=== PATIENT | male | born 1945 | race Caucasian/White ===

== ENCOUNTER 2018-12-12 09:17 | Inpatient (IN) ==
--- NOTE | 2018-12-06 14:59 | Anesthesiology Consultation ---
Date of Service December 06, 2018 Assessment & Plan (1) Encounter for pre-operative examination: Chart Review Chart Review: Acceptable Risk for Surgery and Patient seen in Pre Admission Testing Teaching & Discussion Instructed NPO after midnight before surgery, except medications with 15 cc of water. Medication instructions provided according to the PAT guidelines. History Surgery Operation Date: 12/12/18 12:45 Proposed Procedures p Right Total Hip Replacement - Enrico Miller MD Height/Weight Height: 5 ft 7.5 in Weight: 73.3 kg Allergies Allergy/AdvReac Type Severity Reaction Status Date / Time No Known Allergies Allergy Verified 12/06/18 14:35 Medications Home Medications Medication Instructions Recorded Confirmed Last Taken Ointment 1 dose EXT UD PRN 12/06/18 12/06/18 Unknown acetaminophen [Tylenol Extra 1 - 2 tab PO Q6H PRN 12/06/18 12/06/18 Unknown Strength] naproxen sodium [Aleve] 220 mg PO Q8H PRN 12/06/18 12/06/18 Unknown Past Medical History Medical History Ankle fracture 35 YEARS AGO, S/P multiple surgeries, some chronic pain now. GERD (gastroesophageal reflux disease) HX OF Osteoarthritis Psoriasis Uses Rx topical ointment for this Urinary frequency DURING NIGHT Exercise / Class Metabolic Activity III < 4 Walking/Shop/Light housework (Very limited by ankle and hip pain, but denies any CP or SOB) Past Surgical History Surgical History History of open reduction and internal fixation (ORIF) procedure RT ANKLE X 3 (FUSED NOW) History of tooth extraction Past Anesthesia History No Hx of Anesthesia Complications and No Family Hx of Anesthesia Complications History of PONV No Hx of PONV and No Hx of Motion Sickness Social History Smoking Status: Never smoker Do You Dip or Chew Tobacco: No Hx Alcohol Use: No Hx Substance Use: No substance use type: does not use Review of Systems Pt denies any recent chest pain, shortness of breath, palpitations, cough, fever or URI. Physical Exam Vital Signs BP: 112/68 P: 83bpm SPO2: 96% RA T: 98.7 F R: 16 ENMT Mouth: no dental restorations, no chipped teeth and no loose teeth Thyromental Distance: > or= 3.5 Finger Breadths (3.5) Mallampati Class: II Neck normal visual inspection and + limited neck extension (mildly) Respiratory normal respiratory effort Auscultation: lungs clear to auscultation bilaterally Cardiovascular Rate/Rhythm: regular rate and regular rhythm Heart Sounds: no murmur Vessels: no carotid bruit Extremities: no edema Testing Electrocardiogram Date: 12/06/18 Findings: + NSR @ (75) Chest X-Ray Date: 12/06/18 Findings: + NAD Laboratory Results 12/06/18 15:24 12/06/18 15:24 Blood Type B Negative 12/06/18 15:24 Antibody Screen NEGATIVE 12/06/18 15:24 PT 10.5 Seconds (9.0-12.0) 12/06/18 15:24 INR 1.0 (0.9-1.1) 12/06/18 15:24 APTT 28.0 Seconds (21.0-31.0) 12/06/18 15:24
--- NOTE | 2018-12-06 15:01 | PAT Medication Instructions ---
Medication Instructions Date of Service December 06, 2018 Home Medications Ointment 1 dose EXT UD PRN acetaminophen [Tylenol Extra Strength] 1 - 2 tab PO Q6H PRN naproxen sodium [Aleve] 220 mg PO Q8H PRN ASK your surgeon for instructions naproxen sodium [Aleve] 220 mg PO Q8H PRN STOP taking 24 hours before surgery Ointment 1 dose EXT UD PRN Take morning of surgery With a small sip of water, OTHERWISE NOTHING TO EAT OR DRINK AFTER MIDNIGHT: acetaminophen [Tylenol Extra Strength] 1 - 2 tab PO Q6H PRN (if needed, may be taken up to four hours before surgery) Other Notes If you have any questions please call us at [phone] or [phone] or [phone] or [phone]
[2018-12-06 15:59] LABS: Basophils # (auto) 0.03 K/uL (0-0.2); Basophils % (auto) 0.3 %; Eosinophils # (auto) 0.33 K/uL (0-0.5); Eosinophils % (auto) 3.5 %; Hematocrit (blood only) 39.6 % (42-52); Hemoglobin 13.4 g/dL (14.0-18.0); Immature Granulocytes # (auto) 0.03 K/uL (0.00-0.02); Immature Granulocytes % (auto) 0.3 %; Lymphocytes # (auto) 3.28 K/uL (1.2-3.4); Lymphocytes % (auto) 35.2 %; Mean Corpuscular Hgb Conc 33.8 g/dL (32-36); Mean Corpuscular Volume 86.7 fL (80-100); Mean Platelet Volume 9.8 fL (7.4-10.4); Monocytes % (auto) 10.7 %; Neutrophils # (auto) 4.65 K/uL (1.4-6.5); Platelet Count 374 K/uL (130-400); RDW Coefficient of Variation 16.3 % (11.5-14.5); RDW Standard Deviation 51.9 fL (36.4-46.3); Red Blood Count 4.57 M/uL (4.7-6.1); White Blood Count 9.32 K/uL (4.8-10.8)
[2018-12-06 16:08] LABS: BUN Creatinine Ratio 17.7 (10-20); C Reactive Protein 0.87 mg/dl (0-0.29); Calcium 9.4 mg/dl (8.5-10.1); Creatinine Clr Calc Pharmacy 81.4 ml/min; Est GFR (African American) 104.5; Est GFR (Non-African American) 90.2; Potassium 4.2 mmol/L (3.5-5.1)
[2018-12-06 16:13] LABS: Prothrombin Time 10.5 Seconds (9.0-12.0)
--- NOTE | 2018-12-06 16:28 | XRay Report ---
XR chest Pre-admission PA/Lat CLINICAL HISTORY: Preoperative evaluation. COMPARISON STUDY: No previous studies for comparison. FINDINGS: Lung volumes are normal. There is no consolidation or evidence for pulmonary edema. Cardiac size is normal. Mediastinal contours are normal. IMPRESSION: No acute cardiopulmonary findings. Electronically signed by: Juni Collier M.D. 12/06/2018 4:26 PM
--- NOTE | 2018-12-08 12:56 | History and Physical Report ---
DATE OF ADMISSION: 12/12/2018 CHIEF COMPLAINT: Bilateral hip pain and discomfort, right side greater than left. HISTORY OF PRESENT ILLNESS: The patient is a 73-year-old gentleman referred by my partner, Dr. Xiong for surgical treatment of his hips. He has got a fairly long history of bilateral hip pain and discomfort that has gotten worse recently. He underwent a right ankle arthrodesis done by Dr. Stockton about 6 months ago. He has been doing okay, but doing therapy as a result of this. He started developing increasing pain and discomfort in both of his hips. He has actually already used a cane to get around. The right side is worse than the left. Therapy has actually been aggravating it. He describes groin pain and thigh pain. He has difficulty putting his shoes and socks on. His walking tolerance is limited. PAST MEDICAL HISTORY: Noncontributory. PAST SURGICAL HISTORY: Right ankle arthrodesis 6 months ago done at [place]. ALLERGIES: None. CURRENT MEDICINES: None. SOCIAL HISTORY: Significant for a 73-year-old male. He is single. He lives in [place]. Does not smoke. FAMILY HISTORY: Noncontributory. REVIEW OF HISTORY: Negative for diabetes, neurological problems, vascular problems, bleeding disorders. No chest pain or shortness of breath. No history of DVT or PE. PHYSICAL EXAMINATION: GENERAL: Shows a relatively pleasant elderly male. Looks to be in slightly uncomfortable. HEENT: Benign. NECK: Supple, no lymphadenopathy. LUNGS: Clear to auscultation. HEART: Has regular rate and rhythm. ABDOMEN: Soft, nontender, nondistended. EXTREMITIES: Grossly neurovascularly intact except as follows: Examination of both hips reveals the patient walks with use of a cane. He walks with both feet externally rotated. Leg lengths clinically appear pretty equal. He has difficulty abducting in either leg. He has marked stiffness and pain with hip motion on both sides. Hip range of motion on the right is -10 to 30 and the left is -20 to about 40. He has got no knee effusions. He is neurologically intact otherwise. X-RAYS: X-rays of both hips reveal advanced concentric hip DJD. The left side is actually a bit worse than right. Looks inflammatory in nature. There are cystic changes in the femoral head and acetabulum. LABORATORY RESULTS: Reveal an elevated sed rate of 52 and C-reactive protein of 0.87. ASSESSMENT: A 73-year-old male with a history of hip pain and discomfort, unresponsive to conservative treatment consistent with some type of inflammatory arthritis. His hips are markedly stiff. He would really like to get these fixed. PLAN: We are going to proceed with right total hip replacement as that is the worse clinically. It is not as bad radiographically. The risks and benefits of total hip replacement were explained to the patient including but not limited to DVT, PE, , infection, neurological injury, vascular injury, bleeding problem, pain, limited range of motion, stiffness, failure to relieve symptoms, incomplete relief of symptoms, need for further surgery in future, fracture, leg length inequality, nerve palsy, dislocation, etc. The patient understands and desires to proceed. Informed consent obtained. I do not see any clinical signs of infection. I think his sed rate and C-reactive protein have just elevated due to inflammatory nature of this process. CHARITY
[~2018-12-12 09:17] MED LIST: BUPIVACAINE 0.5 % 5 MG/1 ML PF 10ML VIAL ONE; CEFAZOLIN 2000MG 2,000 MG/15 ML SYR IV SCH; FAMOTIDINE 20 MG TAB PO SCH; GABAPENTIN 300 MG PO SCH; LR 500ML BOLUS, THEN 15ML/HR IV SCH; LR 60ML/HR IV SCH; METOCLOPRAMIDE HCL 10 MG TABLET PO SCH; TRANEXAMIC ACID 1,000 MG **IV Pre-op IV SCH
[2018-12-12] MEDS ORDERED: ACETAMINOPHEN 500 MG TAB ONE (10:41)
[2018-12-12] MEDS ORDERED: fentaNYL citrate 100 MCG/2 ML VIAL ONE (10:51)
[2018-12-12] MEDS ORDERED: MIDAZOLAM HCL 1 MG/ML 2ML VIAL ONE (10:51)
[2018-12-12] MEDS ORDERED: BACITRACIN INJ 50,000 UNIT VIAL ONE (12:03)
[2018-12-12] MEDS ORDERED: BUPIVACAINE/EPINEPHRINE 0.5% MPF 1:200,000 30 ML VIAL ONE (12:03)
[2018-12-12] MEDS ORDERED: MoRPHine SULFATE PF 1 MG/ML 10 ML AMP/VIAL ONE (12:21)
--- NOTE | 2018-12-12 12:57 | History & Physical Bridge Note ---
Date of Service December 12, 2018 History & Physical Bridge Note I have examined the patient, reviewed the History & Physical and in the interval since the performance of the History & Physical I have noted the following changes of clinical significance: no changes noted
[2018-12-12] MEDS ORDERED: PHENYLEPHRINE HCL 10 MG/ML VIAL ONE (13:26)
[2018-12-12] MEDS ORDERED: ePHEDrine sulfate 50 MG/ML SYR ONE (13:27)
[2018-12-12] MEDS ORDERED: ePHEDrine sulfate 50 MG/ML AMP IV PRN (14:30)
[2018-12-12] MEDS ORDERED: ONDANSETRON INJ 2 MG/ML 2 ML VIAL IV PRN (14:30)
[2018-12-12] MEDS ORDERED: NALOXONE HCL 0.4 MG/1 ML VIAL/CARP IV PRN ×2 (14:30→15:48)
[2018-12-12] MEDS ORDERED: LACTATED RINGER'S 500 ML IV PRN (14:30)
[2018-12-12] MEDS ORDERED: MoRPHine SULFATE PF 1 MG/ML 10 ML AMP/VIAL INT SPINAL ONE (14:30)
[2018-12-12] MEDS ORDERED: NO NARCOTICS OR SEDATIVES SCH (14:30)
[2018-12-12] MEDS ORDERED: DiphenhydrAMINE HCL 50 MG/ML VIAL IV PRN (14:30)
[2018-12-12] MEDS ORDERED: MoRPHine SULFATE 2 MG/ML CARP IV PRN (14:30)
[2018-12-12] MEDS ORDERED: NALOXONE HCL 1 MG in SODIUM CHLORIDE 0.9% 1000ML 1,000 ML IV PRN (14:30)
[2018-12-12] MEDS ORDERED: MEPERIDINE HCL 25 MG/ML CARP IV PRN (14:30)
[2018-12-12] MEDS ORDERED: HYDROmorphone INJ 0.5 MG/0.5 ML SYR IV PRN (14:30)
[2018-12-12] MEDS ORDERED: NALBUPHINE HCL INJ 10 MG/ML AMP IV PRN (14:30)
[2018-12-12] MEDS ORDERED: DC INTRASPINAL MORPHINE SCH (14:30)
[2018-12-12] MEDS ORDERED: NALOXONE HCL 0.08 MG in SYRINGE 1.8 ML IV PRN (14:30)
[2018-12-12] MEDS ORDERED: SODIUM CHLORIDE 0.9% 1000ML 1,000 ML IV SCH (14:30)
--- NOTE | 2018-12-12 14:43 | Post Operative Brief Note ---
Immediate Post Op Note v1 Date of Surgery December 12, 2018 Pre & Post Diagnosis Operation Date: 12/12/18 12:30 Pre-Op Diagnosis: Right Hip Degenerative Joint Disease Post-Op Diagnosis: Right Hip Degenerative Joint Disease Procedure Operation Date: 12/12/18 12:30 Actual Procedures p Right Total Hip Replacement(Right) - Enrico Miller MD Surgeon Enrico Miller MD [employer] Daniel, PAC Estimated Blood Loss 300 Findings Consistent with Post-Op Diagnosis Fluids 1400 cc Specimens Right Femoral Head Drains Jose Catheter Anesthesia Type Spinal MAC Complications none Disposition Accompanied Patient To Recovery: Yes Disposition: Recovery Room
--- NOTE | 2018-12-12 15:08 | XRay Report ---
XR hip 1V RT w pelvis HISTORY: 73 years-old Male IN PACU - A/P PELVIS and LATERAL HIP right hip total joint arthroplasty. COMPARISON: None available TECHNIQUE: 2 views of the right hip FINDINGS: Right hip total joint arthroplasty. There is satisfactory alignment without acute fracture. Lateral s kin ambrosio with expected postsurgical soft tissue swelling and deep tissue air. Severe left hip oste oarthritis. IMPRESSION: Right hip total joint arthroplasty demonstrates satisfactory alignment. The above report was generated using voice recognition software. It may contain grammatical, syntax o r spelling errors. Electronically signed by: Jalen Cook M.D. 12/12/2018 3:06 PM
--- NOTE | 2018-12-12 15:22 | Anesthesiology Progress Note ---
Date of Service December 12, 2018 Anesthesia Post Procedure Vital Signs Vital Signs: Temp Pulse Pulse Resp BP Pulse Ox 12/12/18 15:15 36.3 C L 93 H 16 94/62 L 97 12/12/18 15:05 92 H 15 95/59 L 96 12/12/18 14:55 90 17 96/60 L 97 12/12/18 14:45 92 H 14 92/60 L 96 12/12/18 14:37 36.2 C L 98 H 16 92/59 L 97 12/12/18 10:20 36.7 C 74 18 127/75 97 Transfer of Care Handoff Completed per policy Notes Mental Status: alert / awake / arousable and participated in evaluation Nausea / Vomiting: adequately controlled Pain: adequately controlled Airway Patency, RR, SpO2: stable & adequate BP & HR: stable & adequate Hydration State: stable & adequate Neuraxial Anesthesia: was administered and sensory block is resolving Anesthetic Complications: no major complications apparent and Pt Satisfied with anesthetic care
[2018-12-12] MEDS ORDERED: MAGNESIUM HYDROXIDE SUSP 30 ML UDC PO PRN (15:48)
[2018-12-12] MEDS ORDERED: TAMSULOSIN HCL 0.4 MG CAP PO PRN (15:48)
[2018-12-12] MEDS ORDERED: ALUMINUM/MAGNESIUM SUSP 30 ML UDC PO PRN (15:48)
[2018-12-12] MEDS ORDERED: BISACODYL 10 MG SUPP PR PRN (15:48)
[2018-12-12] MEDS ORDERED: TRIAMCINOLONE ACET 0.1% OINT 15 GM TUBE EXT PRN (15:48)
[2018-12-12] MEDS: SODIUM CHLORIDE 0.9% 1000ML 1,000 ML IV SCH (16:29)
[2018-12-12] MEDS: ASCORBIC ACID 500 MG TAB PO SCH (16:57)
[2018-12-12] MEDS: FERROUS GLUCONATE 324 MG TAB PO SCH (16:57)
[2018-12-12] MEDS: KETOROLAC TROMETHAMINE 15 MG/ML VIAL IV SCH (17:04)
--- NOTE | 2018-12-12 18:19 | Operative Report ---
DATE OF OPERATION: 12/12/2018 SURGEON: Dr. Enrico Miller. LIQUOR CLERK: BRENNAN Becerra PREOPERATIVE DIAGNOSIS: Right hip degenerative joint disease. POSTOPERATIVE DIAGNOSIS: Right hip degenerative joint disease. PROCEDURE PERFORMED: Right uncemented ceramic on highly cross-linked polyethylene total hip arthroplasty. COMPLICATIONS: None. ESTIMATED BLOOD LOSS: 300 mL. FLUID REPLACEMENT: 1400 mL of crystalloid fluid replacement. ANESTHESIA: Spinal. DRAINS: None. SPECIMENS: Right femoral head sent for Pathology. OPERATIVE INDICATIONS: The patient is a 73-year-old gentleman who has had a very long history of bilateral hip pain and discomfort, describes it has just gotten worse over time. It has become quite debilitating in nature. Both hips have bothered him, but the right was worse than the left clinically. X-rays show erosive inflammatory hip arthritis. His sed rate and C-reactive protein were elevated consistent with this. The patient elected to proceed with total hip arthroplasty. OPERATIVE FINDINGS: Operative findings revealed extremely stiff hip. He has external rotation contracture of about 15-20 degrees. He had diffuse inflammatory arthritic hip. Not much in the way of osteophyte that he did have some protrusio appearance to his hip. OPERATIVE IMPLANTS: Operative implants consisted of: 1. Biomet G7 size 52 mm acetabular shell. 2. A 6.5 cancellous acetabular screws, 1 at 35 mm length and 1 at 30 mm length. 3. An apex hole eliminator. 4. The highly cross-linked polyethylene liner with a 52 mm outer diameter, 36 mm inner diameter with a barron placed inferior and posterior. 5. A DePuy Corail size 11 KLA femoral stem. 6. A +1.5/36 mm ceramic articular ball. OPERATIVE PROCEDURE: The patient was taken to the Operating Room, identified and placed on operative table in supine position. All contact areas were appropriately padded. IV antibiotics were provided by Anesthesia team. A spinal anesthetic had been implemented in the holding area. Jose catheter was placed in sterile fashion. The patient was then placed in the right lateral decubitus position. An axillary roll was placed. Stlberg hip positioner was used for positioning. Right hip and leg were then prepped and draped in usual sterile fashion. A posterolateral approach to the right hip was then performed through a curvilinear incision in terms of the greater trochanter. Sharp dissection was carried through the subcutaneous tissue down to the level of the IT band and gluteal fascia. The IT band and gluteal fascia was then incised longitudinally in line with skin incision. The underlying greater trochanteric bursa was excised. I could not internally rotate his leg at all, so I had to release the posterior capsule and external rotators as a single track layer the posterior aspect of the hip joint, taking great care to protect the sciatic nerve at all times. I stayed on directly on bone as much as possible. Even doing this, it was very difficult and I was then able to dislocate his hip without concerns of fracture. Therefore, I did in situ osteotomy of the femoral neck. I then internally rotated the hip. I then cut the femoral neck about a centimeter above the lesser trochanter, which was the templated distance. The femoral neck portion was removed. The femur was retracted anteriorly and the femoral head was removed. As I had to do significant capsular releases in order to expose the acetabulum, I removed the labrum. He did have a protrusio appearance to the hips, so there was not much reaming necessary. I began reaming the acetabulum with a size 45 and progressing up to a 51. A 52 mm Biomet G7 acetabular shell was then placed in about 40 degrees of lateral opening and 20 degrees of anteversion. It was fixed with two 6.5 cancellous acetabular screws. A trial liner was placed. Attention was then drawn to the femur. The proximal femur was entered with a cookie cutter followed by a canal finder. I then broached beginning with a size 8 and progressed up to 11. We got excellent fit with the 11. I then trialed the hip. The hip was still quite tight. With the +5 articular ball, it just seemed too tight. I could locate it, but it was tight. We tried both the KLA and the standard stem. I felt with the KLA prior little bit more stability and more appropriate leg lengths. We elected to place these implants. I did elect to use a +1.5 articular ball in order to take some of the soft tissue tension off. I did place a barron on the acetabulum in order to maximize stability and flexion. We elected to place these implants. All trial implants were removed. An apex hole eliminator was placed. Highly cross-linked polyethylene liner with a 52 mm outer diameter, 36 mm inner diameter with a barron placed inferior and posterior was placed. A DePuy Corail size 11 KLA femoral stem was impacted in position. A +1.5/36 mm articular ball was placed. Hip was relocated. It was difficult to relocate it and more difficult with this posterior lip, but we were able to do it. Hip was stable with full extension, external rotation, flexion to 90 degrees, internal rotation to about 50 degrees. Attention was then drawn toward closing. The wound was irrigated with copious amounts of pulsatile lavage solution. I did inject locally with 60 mL of 0.5% Marcaine with epinephrine. The posterior capsule and external rotators were repaired as a single layer with #2 Ti-Cron suture through the posterior aspect of the greater trochanter. The IT band and gluteal fascia were then closed with #1 PDS suture in running fashion. The subcutaneous tissues were then closed with 2 layers, the deep layer #1 Vicryl suture and the subcutaneous tissue with 2-0 Dexon suture in a buried interrupted fashion. The skin was then closed with skin ambrosio. Leg was then cleaned, dried and a sterile dressing of Xeroform, 4 x 4, sterile ABD pad and foam tape was applied. The patient then transferred to the Recovery Room in stable condition. The patient tolerated the procedure well with no complications. All needle and sponge counts were correct at the end of the operation. I attest to the content of the Intraoperative Record and any orders documented therein. Any exception s are noted below.
[2018-12-12] MEDS ORDERED: TRANEXAMIC ACID 1,000 MG in 0.9 % SODIUM CHLORIDE 100 ML IV SCH (20:44)
[2018-12-12] MEDS: ASPIRIN 81 MG ECTAB PO SCH (21:04)
[2018-12-12] MEDS: SENNA 8.6 MG TAB PO SCH (21:04)
[2018-12-12] MEDS: ACETAMINOPHEN 500 MG TAB PO SCH (21:04)
[2018-12-12] MEDS: DOCUSATE SODIUM 100 MG CAP PO SCH (21:04)
[2018-12-12] MEDS: CEFAZOLIN 1000MG 1,000 MG/7.5 ML SYR IV SCH (21:52)
[2018-12-12] MEDS ORDERED: PROMETHAZINE HCL 12.5 MG in SODIUM CHLORIDE 0.9% 50 ML IV ONE (22:15)
[2018-12-13] MEDS: KETOROLAC TROMETHAMINE 15 MG/ML VIAL IV SCH ×5 (00:04→23:57)
[2018-12-13] MEDS: SODIUM CHLORIDE 0.9% 1000ML 1,000 ML IV SCH (02:42)
[2018-12-13] MEDS: CEFAZOLIN 1000MG 1,000 MG/7.5 ML SYR IV SCH (05:49)
[2018-12-13] MEDS: ACETAMINOPHEN 500 MG TAB PO SCH ×3 (05:55→21:35)
[2018-12-13 06:16] LABS: Basophils # (auto) 0.02 K/uL (0-0.2); Basophils % (auto) 0.3 %; Eosinophils # (auto) 0.16 K/uL (0-0.5); Eosinophils % (auto) 2.3 %; Hematocrit (blood only) 32.8 % (42-52); Hemoglobin 10.8 g/dL (14.0-18.0); Immature Granulocytes # (auto) 0.01 K/uL (0.00-0.02); Immature Granulocytes % (auto) 0.1 %; Lymphocytes # (auto) 1.88 K/uL (1.2-3.4); Lymphocytes % (auto) 27.1 %; Mean Corpuscular Hgb Conc 32.9 g/dL (32-36); Mean Corpuscular Volume 86.5 fL (80-100); Mean Platelet Volume 9.4 fL (7.4-10.4); Monocytes # (auto) 1.05 K/uL (0.11-0.59); Monocytes % (auto) 15.2 %; Neutrophils # (auto) 3.81 K/uL (1.4-6.5); Platelet Count 277 K/uL (130-400); RDW Coefficient of Variation 15.5 % (11.5-14.5); RDW Standard Deviation 49.8 fL (36.4-46.3); Red Blood Count 3.79 M/uL (4.7-6.1); White Blood Count 6.93 K/uL (4.8-10.8)
[2018-12-13 06:54] LABS: BUN Creatinine Ratio 16.1 (10-20); Calcium 8.2 mg/dl (8.5-10.1); Creatinine Clr Calc Pharmacy 82.5 ml/min; Est GFR (African American) 105.1; Est GFR (Non-African American) 90.7; Potassium 4.1 mmol/L (3.5-5.1)
[2018-12-13] MEDS: MULTIVITAMIN TAB PO SCH (07:47)
[2018-12-13] MEDS: DOCUSATE SODIUM 100 MG CAP PO SCH ×2 (07:47→21:36)
[2018-12-13] MEDS: ASPIRIN 81 MG ECTAB PO SCH ×2 (07:47→21:36)
[2018-12-13] MEDS: ASCORBIC ACID 500 MG TAB PO SCH ×2 (07:48→17:38)
[2018-12-13] MEDS: FERROUS GLUCONATE 324 MG TAB PO SCH ×2 (07:48→17:38)
--- NOTE | 2018-12-13 07:57 | Anesthesiology Progress Note ---
Date of Service December 13, 2018 Anesthesia Post Procedure Vital Signs Vital Signs: Temp Pulse Pulse Resp BP Pulse Ox 12/13/18 07:50 16 97 12/13/18 07:29 36.7 C 90 20 99/58 L 96 12/13/18 07:00 17 95 12/13/18 05:56 16 93 12/13/18 05:00 19 99 12/13/18 04:00 16 97 12/13/18 03:40 36.4 C L 96 H 18 91/55 L 98 12/13/18 03:02 16 97 12/13/18 02:00 16 95 12/13/18 00:58 15 96 12/13/18 00:00 16 96 12/12/18 23:07 36.4 C L 97 H 18 105/69 94 12/12/18 23:03 36.4 C L 97 H 18 105/69 94 12/12/18 22:48 18 92 12/12/18 22:44 17 97 12/12/18 22:00 17 93 12/12/18 21:00 17 97 12/12/18 20:00 17 97 12/12/18 19:13 36.4 C L 12/12/18 19:00 17 96 12/12/18 18:54 95 H 17 109/69 97 12/12/18 18:00 17 99 12/12/18 17:54 83 17 107/66 99 12/12/18 16:41 89 17 90/49 L 98 12/12/18 16:18 83 16 99/65 L 98 12/12/18 15:45 36.5 C 86 16 95/60 L 98 12/12/18 15:30 85 15 94/56 L 98 12/12/18 15:15 36.3 C L 93 H 16 94/62 L 97 12/12/18 15:05 92 H 15 95/59 L 96 12/12/18 14:55 90 17 96/60 L 97 12/12/18 14:45 92 H 14 92/60 L 96 12/12/18 14:37 36.2 C L 98 H 16 92/59 L 97 12/12/18 10:20 36.7 C 74 18 127/75 97 Pain Intensity Right Hip: Pain Intensity: 1 Notes Mental Status: alert / awake / arousable and participated in evaluation Patient Amnestic to Procedure: Yes Nausea / Vomiting: adequately controlled Pain: adequately controlled Airway Patency, RR, SpO2: stable & adequate BP & HR: stable & adequate Hydration State: stable & adequate Neuraxial Anesthesia: was administered and sensory block resolved Anesthetic Complications: no major complications apparent and Pt Satisfied with anesthetic care
--- NOTE | 2018-12-13 07:58 | Progress Note ---
DATE: 12/13/2018 SUBJECTIVE: A 73-year-old gentleman postop day 1 from a right hip replacement. He is doing pretty well. Pain seems to be controlled. No chest pain or shortness of breath. Not feeling dizzy or lightheaded. OBJECTIVE: VITAL SIGNS: Temperature 36.4. Vital signs stable. GENERAL: Physical examination shows a pleasant elderly male. He is sitting at his bedside with his legs dangling over the bed and looks pretty comfortable. EXTREMITIES: Examination of the right hip reveals the dressing to be clean, dry and intact. His thigh is soft and supple. Hip is located. He is neurologically intact. LABORATORY DATA: Hemoglobin 10.8. Hematocrit 32.8. Electrolytes are stable. ASSESSMENT: A 73-year-old gentleman postop day 1 from right hip replacement, doing quite well. Hip is located. His pain is controlled. He is neurologically intact. PLAN: 1. DVT prophylaxis including thigh-high TEDs, SCDs, and aspirin twice a day. 2. PT/OT. Weight bear as tolerated. Right total hip protocol. 3. Pain control, doing pretty well with current pain regimen. 4. Disposition: We are going to see how therapy goes today. He does not have much help at home. He might benefit from a senior care facility or rehab stay depending on how he is getting around today.
[2018-12-13] MEDS ORDERED: ONDANSETRON INJ 2 MG/ML 2 ML VIAL IV PRN (08:30)
[2018-12-13] MEDS ORDERED: METOCLOPRAMIDE HCL INJ 5 MG/ML 2 ML VIAL IV PRN (08:30)
[2018-12-13] MEDS ORDERED: HYDROmorphone INJ 0.5 MG/0.5 ML SYR IV PRN (08:30)
[2018-12-13] MEDS ORDERED: TRAMADOL HCL 50 MG TABLET PO PRN (08:30)
[2018-12-13] MEDS: SENNA 8.6 MG TAB PO SCH (21:35)
[2018-12-14] MEDS: ACETAMINOPHEN 500 MG TAB PO SCH ×2 (06:00→16:37)
[2018-12-14] MEDS: KETOROLAC TROMETHAMINE 15 MG/ML VIAL IV SCH ×2 (06:00→11:52)
--- NOTE | 2018-12-14 08:29 | Progress Note ---
DATE: 12/14/2018 SUBJECTIVE: A 73-year-old gentleman postop day 2 from a right hip replacement. He is doing pretty well. Pain is controlled. No chest pain or shortness of breath. Not feeling dizzy or lightheaded. OBJECTIVE: VITAL SIGNS: Temperature 36.5. Vital signs stable. GENERAL: Physical examination shows a pleasant middle-aged male who was walking to the bathroom with his walker this morning when I visited him. He seems to be getting around quite well. His hip incision is clean, dry and intact. Fairly mild swelling. Hip is located. He is neurologically intact. ASSESSMENT: A 73-year-old gentleman postop day 2 from a right hip replacement, doing pretty well. Pain is controlled. PLAN: 1. DVT prophylaxis including thigh-high TEDs, SCDs, and aspirin twice a day. 2. PT/OT. Weight bear as tolerated. Right total hip protocol. 3. Pain control, doing okay with current pain regimen. 4. Disposition: He is hoping to be discharged to rehab. I think they are looking into [facility]. We will transfer him there if accepted and approved.
[2018-12-14] MEDS: MULTIVITAMIN TAB PO SCH (09:23)
[2018-12-14] MEDS: ASPIRIN 81 MG ECTAB PO SCH (09:23)
[2018-12-14] MEDS: DOCUSATE SODIUM 100 MG CAP PO SCH (09:24)
[2018-12-14] MEDS: ASCORBIC ACID 500 MG TAB PO SCH ×2 (09:24→16:38)
[2018-12-14] MEDS: FERROUS GLUCONATE 324 MG TAB PO SCH ×2 (09:24→16:38)
--- NOTE | 2018-12-19 14:42 | Discharge Summary ---
ADMITTING PHYSICIAN AND SURGEON: Dr. Enrico Miller. ADMITTING DIAGNOSIS: Right hip degenerative joint disease. SURGERY PERFORMED: Right total hip arthroplasty. SECONDARY DIAGNOSES: Noncontributory. CONSULTS: None obtained. HISTORY AND PHYSICAL EXAMINATION: Well documented in patient's chart. HOSPITAL COURSE: The patient was admitted on 12/12/2018 underwent total hip arthroplasty, tolerated the procedure well with no complications. He was transferred to the PACU postoperatively and later to the orthopedic floor for further care. He was given Ancef for antibiotic prophylaxis, YASMIN stockings, SCDs and aspirin for DVT prophylaxis. Hemoglobin, hematocrit and vital signs were monitored during his hospital stay and remained stable, did not require any blood transfusions. There were no complications. By postoperative day 2, he was tolerating a regular diet, pain was controlled with oral pain medicine. He was participating in physical therapy. Postop day 2, he was transferred to a rehab facility, given printed discharge instructions including new prescriptions for extra strength Tylenol, aspirin, iron supplement and tramadol. Continue his home medicines with exception of his home dosing of Tylenol. Continue physical therapy, weightbearing as tolerated, YASMIN stockings, total hip precautions. Followup approximately 2 weeks postop or sooner if there are any problems or concerns.
== END 2018-12-14 17:20 | DRG 470 ==
LOC: ASU 09:17 → 3E 14:47

== ENCOUNTER 2019-07-17 05:24 | Inpatient (IN) ==
--- NOTE | 2019-07-10 21:55 | History and Physical Report ---
DATE OF ADMISSION: 07/17/2019 CHIEF COMPLAINT: Persistent left hip pain and discomfort. HISTORY OF PRESENT ILLNESS: The patient is a 74-year-old gentleman who is now about 7 months out from right total hip replacement. He has done extremely well from this side. He has had a long history of hip problems. He is now limited by his left hip pain and discomfort. He has got groin pain and thigh pain. His hip is very stiff hip. He has difficulty bending and cannot even get down to the floor to pick something up. He describes the pain is worse with walking. The more he walks, the more it hurts. He has nighttime pain. He has used a cane for years to get around as a result. He would like to have his left hip fixed. He is very happy with his right hip replacement. PAST MEDICAL HISTORY: Noncontributory. PAST SURGICAL HISTORY: Include, 1. Right ankle arthrodesis done in [place]. 2. Right total hip replacement done on 12/13/2018. ALLERGIES: None. CURRENT MEDICATIONS: None. SOCIAL HISTORY: A 74-year-old male. He is single. Rare alcohol intake. Does not smoke. FAMILY HISTORY: Noncontributory. REVIEW OF SYSTEMS: Negative for diabetes, neurologic problems, vascular problems, or bleeding disorders. Denies any chest pain or shortness of breath. No history of DVT or PE. No known bleeding problems. PHYSICAL EXAMINATION: GENERAL: Shows a pleasant elderly male. Looks reasonably healthy. HEENT: Benign. NECK: Supple, no lymphadenopathy. LUNGS: Clear to auscultation. HEART: Regular rate and rhythm. ABDOMEN: Soft, nontender, nondistended. EXTREMITIES: Grossly neurovascularly intact except as follows: Examination of both hips reveals patient walks with the use of a cane. Examination of the right hip reveals the incision to be healed nicely. He has got a little stiffness to his hip but no pain with hip motion. He is neurologically intact. The wound is benign in appearance. Examination of the left hip reveals a very stiff hip. He has got about a 20- to 25-degree external rotation contracture. He has got a flexion contracture of 15 degrees. He can flex to about 90 degrees. No knee effusion. He is neurologically intact. X-RAYS: X-rays of the left hip were reviewed. It shows advanced left hip DJD. He has got concentric disease and complete loss of the joint space. He has got diffuse osteopenia. He has got cystic changes in the femoral head and acetabulum. The right hip replacement looks to be in good position. ASSESSMENT: A 74-year-old gentleman 7 months out from right hip replacement with advanced left hip degenerative joint disease. He has got a very stiff hip. He is limited by his left hip and he would like to have it fixed. PLAN: We will take him to the operating room and do a left total hip replacement. The risks and benefits were explained to the patient to include, but not limited to, DVT, PE, , infection, neurological injury, vascular injury, bleeding problem, pain, limited range of motion, stiffness, failure to relieve symptoms, incomplete relief of symptoms, need for further surgery in the future, fracture, leg length inequality, nerve palsy, dislocation. The patient understands and desires to proceed. Informed consent was obtained. His hip is very stiff and he does not have much offset. We will assess that at the time of surgery and will try to put a femoral implant in similar to the other side. We will try to do the best we can to equalize the leg lengths as it is difficult to assess due to his flexion contracture. As far as discharge plans, he is hoping to go to [facility] in [place] where he went last time. He does live by himself. I will see him back 2 weeks postop. CHARITY
--- NOTE | 2019-07-15 08:19 | Anesthesiology Consultation ---
Date of Service July 15, 2019 Assessment & Plan (1) Encounter for pre-operative examination: Chart Review Chart Review: Acceptable Risk for Surgery and Patient NOT seen in Pre Admission Testing Consults Requested none History Surgery Operation Date: 07/17/19 09:05 Proposed Procedures p Left Total Hip Arthroplasty - Enrico Miller MD Height/Weight Height: 5 ft 7 in Weight: 71.214 kg Allergies Allergy/AdvReac Type Severity Reaction Status Date / Time azathioprine AdvReac Intermediate EXTREMELY Verified 06/18/19 11:57 VOMITTING Medications Home Medications Medication Instructions Recorded Confirmed Last Taken Ointment 1 dose EXT UD PRN 12/06/18 06/18/19 12/10/18 naproxen sodium [Aleve] 220 mg PO Q8H PRN 12/06/18 06/18/19 Unknown mirtazapine 15 mg tablet 15 mg PO HS 05/16/19 06/18/19 Unknown Steroid Medication 1 tab PO DAILY 06/18/19 06/18/19 Unknown Past Medical History Medical History Ankle fracture 35 YEARS AGO, S/P multiple surgeries, some chronic pain now. GERD (gastroesophageal reflux disease) HX OF Osteoarthritis Psoriasis Uses Rx topical ointment for this Urinary frequency DURING NIGHT Past Family History Family History Other No significant family history Past Surgical History Surgical History History of open reduction and internal fixation (ORIF) procedure RT ANKLE X 3 (FUSED NOW) History of tooth extraction History of total hip arthroplasty RT Social History Smoking Status: Never smoker Do You Dip or Chew Tobacco: No Hx Alcohol Use: Yes Alcohol type: wine alcohol intake frequency: holidays/special occasions only Hx Substance Use: No substance use type: does not use Testing Laboratory Results Laboratory Tests 07/12/19 07/12/19 12:00 12:00 WBC 8.57 Hgb 12.8 L Hct 40.4 L Plt Count 387 Sodium 139 Potassium 4.4 Chloride 107 Carbon Dioxide 27 BUN 15 Creatinine 0.88 Glucose 97 Electrocardiogram Date: 12/06/18 Findings: + NSR @ (75) Normal sinus rhythm Normal ECG No previous ECGs available Confirmed by Nando Gordon ([id number]) on 12/06/2018 11:22:18 PM Chest X-Ray Date: 12/06/18 XR chest Pre-admission PA/Lat CLINICAL HISTORY: Preoperative evaluation. COMPARISON STUDY: No previous studies for comparison. FINDINGS: Lung volumes are normal. There is no consolidation or evidence for pulmonary edema. Cardiac size is normal. Mediastinal contours are normal. IMPRESSION: No acute cardiopulmonary findings.
[2019-07-17] MEDS ORDERED: GABAPENTIN 300 MG CAP PO SCH (06:00)
[2019-07-17] MEDS ORDERED: TRANEXAMIC ACID 1,000 MG **IV Pre-op IV SCH (06:00)
[2019-07-17] MEDS ORDERED: LR 60ML/HR IV SCH (06:00)
[2019-07-17] MEDS ORDERED: CEFAZOLIN 2000MG 2,000 MG/15 ML SYR IV SCH (06:00)
[2019-07-17] MEDS ORDERED: METOCLOPRAMIDE HCL 10 MG TABLET PO SCH (06:00)
[2019-07-17] MEDS ORDERED: FAMOTIDINE 20 MG TAB PO SCH (06:00)
[2019-07-17] MEDS ORDERED: ACETAMINOPHEN 500 MG TAB PO SCH (06:00)
[2019-07-17] MEDS ORDERED: LR 500ML BOLUS, THEN 15ML/HR IV SCH (06:00)
--- NOTE | 2019-07-17 06:57 | History & Physical Bridge Note ---
Date of Service July 17, 2019 History & Physical Bridge Note I have examined the patient, reviewed the History & Physical and in the interval since the performance of the History & Physical I have noted the following changes of clinical significance: no changes noted
[2019-07-17] MEDS ORDERED: MoRPHine SULFATE PF 1 MG/ML 10 ML AMP/VIAL ONE (07:55)
[2019-07-17] MEDS ORDERED: MIDAZOLAM HCL 1 MG/ML 2ML VIAL ONE (07:55)
[2019-07-17] MEDS ORDERED: PROPOFOL IV EMULSION 10 MG/ML 20 ML VIAL IV ONE (07:55)
[2019-07-17] MEDS ORDERED: BUPIVACAINE 0.5 % 5 MG/1 ML PF 10ML VIAL ONE (07:56)
[2019-07-17] MEDS ORDERED: EPINEPHrine INJ 1 MG/ML AMP ONE (08:42)
[2019-07-17] MEDS ORDERED: BUPIVACAINE 0.5 % 5 MG/1 ML MPF 30ML VIAL ONE (08:42)
[2019-07-17] MEDS ORDERED: BACITRACIN INJ 50,000 UNIT VIAL ONE (08:42)
[2019-07-17] MEDS ORDERED: PROMETHAZINE HCL 6.25 MG in SODIUM CHLORIDE 0.9% 50 ML IV PRN (08:47)
[2019-07-17] MEDS ORDERED: ePHEDrine sulfate 50 MG/ML AMP IV PRN (08:47)
[2019-07-17] MEDS ORDERED: MoRPHine SULFATE PF 1 MG/ML 10 ML AMP/VIAL INT SPINAL ONE (08:47)
[2019-07-17] MEDS ORDERED: NALBUPHINE HCL INJ 10 MG/ML AMP IV PRN (08:47)
[2019-07-17] MEDS ORDERED: LACTATED RINGER'S 500 ML IV PRN (08:47)
[2019-07-17] MEDS ORDERED: MEPERIDINE HCL 25 MG/ML CARP IV PRN (08:47)
[2019-07-17] MEDS ORDERED: NALOXONE HCL 1 MG in SODIUM CHLORIDE 0.9% 1000ML 1,000 ML IV PRN (08:47)
[2019-07-17] MEDS ORDERED: NALOXONE HCL 0.4 MG/1 ML VIAL/CARP IV PRN (08:47)
[2019-07-17] MEDS ORDERED: KETOROLAC TROMETHAMINE 15 MG/ML VIAL IV PRN (08:47)
[2019-07-17] MEDS ORDERED: NALOXONE HCL 0.08 MG in SYRINGE 1.8 ML IV PRN (08:47)
[2019-07-17] MEDS ORDERED: DiphenhydrAMINE HCL 50 MG/ML VIAL IV PRN (08:47)
[2019-07-17] MEDS ORDERED: ONDANSETRON INJ 2 MG/ML 2 ML VIAL IV PRN (08:47)
[2019-07-17] MEDS ORDERED: SODIUM CHLORIDE 0.9% 1000ML 1,000 ML IV SCH (09:00)
[2019-07-17] MEDS ORDERED: NO NARCOTICS OR SEDATIVES SCH (09:00)
[2019-07-17] MEDS ORDERED: PHENYLEPHRINE 100MCG/ML 5ML SYR ONE (09:34)
[2019-07-17] MEDS ORDERED: ONDANSETRON INJ 2 MG/ML 2 ML VIAL ONE (09:45)
--- NOTE | 2019-07-17 10:20 | Post Operative Brief Note ---
PG Immediate Post Op with CF Date of Surgery July 17, 2019 Pre & Post Diagnosis Operation Date: 07/17/19 08:50 Pre-Op Diagnosis: Left Hip Advanced Degenerative Joint Disease Post-Op Diagnosis: Left Hip Advanced Degenerative Joint Disease I identified the patient and participated in the time-out.: Yes Procedure Operation Date: 07/17/19 08:50 Actual Procedures p Left Total Hip Arthroplasty--Uncemented(Left) - Enrico Miller MD Surgeon Enrico Miller MD Bilingual Branch Manager Daniel, PAC Estimated Blood Loss 200 Findings Consistent with Post-Op Diagnosis Fluids 1200 cc Specimens Specimen Description: A. Left Femoral Head Drains Puga Catheter (A 16 Congolese puga catheter was inserted by BRENNAN Aguilera, without difficulty, clear yellow urine obtained, output to be monitored by Anesthesia.) Anesthesia Type Spinal MAC Complications none Disposition Disposition: Recovery Room
--- NOTE | 2019-07-17 10:52 | XRay Report ---
XR hip 1V LT w pelvis CLINICAL HISTORY: Postoperative evaluation. COMPARISON: Pelvis radiograph May 16, 2019. FINDINGS: Alignment of the total left hip arthroplasty is anatomic. There is no fracture or unexpect ed radiopaque foreign body. There are acetabular screws. Skin ambrosio are present. Right hip arthropl asty is unchanged in appearance. IMPRESSION: Expected findings following total left hip arthroplasty. Electronically signed by: Juni Collier M.D. 07/17/2019 10:51 AM
--- NOTE | 2019-07-17 11:10 | Anesthesiology Progress Note ---
Date of Service July 17, 2019 Anesthesia Post Procedure Vital Signs Vital Signs: Temp Pulse Pulse Resp BP Pulse Ox 07/17/19 11:00 86 14 109/55 L 98 07/17/19 10:50 81 15 95/52 L 98 07/17/19 10:40 87 14 92/52 L 100 07/17/19 10:30 86 13 95/55 L 99 07/17/19 10:22 36.8 C 87 17 92/49 L 99 07/17/19 06:52 36.6 C 73 20 124/75 97 Pain Intensity Left Hip: Pain Intensity: 0 Transfer of Care Handoff Completed per policy Notes Mental Status: alert / awake / arousable Patient Amnestic to Procedure: Yes Nausea / Vomiting: adequately controlled Pain: adequately controlled Airway Patency, RR, SpO2: stable & adequate BP & HR: stable & adequate Hydration State: stable & adequate Neuraxial Anesthesia: was administered and sensory block is resolving Anesthetic Complications: no major complications apparent
[2019-07-17] MEDS ORDERED: TAMSULOSIN HCL 0.4 MG CAP PO PRN (12:02)
[2019-07-17] MEDS ORDERED: bisacodyL 10 MG SUPP PR PRN (12:02)
[2019-07-17] MEDS ORDERED: ALUMINUM/MAGNESIUM SUSP 30 ML UDC PO PRN (12:02)
[2019-07-17] MEDS ORDERED: METOCLOPRAMIDE HCL INJ 5 MG/ML 2 ML VIAL IV PRN (12:02)
[2019-07-17] MEDS ORDERED: MAGNESIUM HYDROXIDE SUSP 30 ML UDC PO PRN (12:02)
[2019-07-17] MEDS ORDERED: [UNRECOGNIZED DRUG - OTHER] EXT PRN (12:02)
[2019-07-17] MEDS: SODIUM CHLORIDE 0.9% 1000ML 1,000 ML IV SCH ×2 (13:21→22:31)
[2019-07-17] MEDS: ACETAMINOPHEN 500 MG TAB PO SCH ×2 (13:23→20:01)
[2019-07-17] MEDS ORDERED: TRANEXAMIC ACID / 0.7% NACL 1,000 MG/100 ML BAG IV SCH (17:00)
--- NOTE | 2019-07-17 17:13 | Operative Report ---
Post Operative Report Pre & Post Diagnosis Operation Date: 07/17/19 08:50 Pre-Op Diagnosis: Left Hip Advanced Degenerative Joint Disease Post-Op Diagnosis: Left Hip Advanced Degenerative Joint Disease I identified the patient and participated in the time-out.: Yes Procedure Operation Date: 07/17/19 08:50 Actual Procedures p Left Total Hip Arthroplasty--Uncemented(Left) - Enrico Miller MD Surgeon Enrico Miller MD Game Farm Supervisor Daniel, PAC Estimated Blood Loss 200 Findings Consistent with Post-Op Diagnosis Operative findings revealed advanced left hip DJD. He extensive and diffuse grade 4 changes of the femoral head and acetabulum. He had a protrusio appearance to the acetabulum with a very stiff hip. He had a large hip joint effusion with some moderate synovitis. Fluids 1200 cc Specimens Left femoral head sent for pathology. Drains None Anesthesia Type Spinal MAC Complications none Disposition Accompanied Patient To Recovery: Yes Disposition: Recovery Room Indications Patient is a 74-year-old fairly active gentleman is had a long history of hip problems that is gotten significantly worse over the past 5 years. He became very debilitated by his hip arthritis. About 6 months ago he underwent a right total hip replacement is done remarkably well. He continues to be limited by his pain and discomfort stiffness in his left hip and would like to proceed with left total hip arthroplasty. Description of Procedure Operative implants consist of: 1. Biomet G7 size 52 mm acetabular shell. 2. Biomet 6.5 cancellus acetabular screws 1 a 35 mm length and 125 mm length. 3. [place] hole eliminator. 4. Highly cross-link polyethylene liner with a 52 mm outer diameter and 36 mm diameter. 5. Valentina Corail size 11 KLA femoral stem. 6. +1.5/36 mm ceramic articular ball. Patient is taken to the operating room identified and placed on the operating room table in supine position with a contractors were probably padded. IV antibiotic were provided by the anesthesia team. A spinal anesthetic been implemented holding area. Jose catheter was placed in sterile fashion. Patient then placed in the right lateral decubitus position. An axillary roll was placed. Stulberg hip positioner was used for positioning. The left hip and leg were then prepped and draped in usual sterile fashion. A posterior lateral posterior left hip was then performed to a curvilinear incision centered over the greater trochanter but Sharp passes cut through subcutaneous tissue down below the IT band gluteal fascia the IT band gluteal fascia incised longitudinally in line with skin incision. The underlying greater truck bursa was excised. The piriformis and external rotators and posterior capsule were then released from the posterior aspect of the hip as a single layer. I very carefully released these from the posterior aspect of the femoral neck. Even doing this back to the acetabulum I could not do dislocated hip easily without concern for fracture. Therefore a osteomyelitis the femoral neck to allow me internally rotated and I made the femoral neck cut a centimeter above the lesser trochanter which was the same as the opposite side. The femur was then retracted anteriorly. The femoral head was removed. The acetabular labrum was excised. The pulmonary fat was excised. Sequential reaming of the acetabulum was then performed again with a size 45 and progressing up to 51 mm reamer. A 52 mm Biomet G7 acetabular shell was then placed in about 40 degrees lateral opening and 20 degrees of anteversion. It was fixed with two 6.5 cancellus acetabular screws. Trial liner was placed. Attention drawn the f emur. The proximal femur was entered with a cookie-cutter followed by canal finder. Then broached begin the size 8 and progressing up to 11. Got an excellent fit and 11. The calcar reamer was used smooth and off the calcar. I then trialed the hip and I felt the +1.5 articular ball provide full stability in extension and external rotation and flexion to 90 degrees internal rotation over 50 deg caitlin. Leg lengths seen and soft tissues seem equal and this is the same implants I put in the other side. We elect to place these implants. If all trial implants were removed. An apex hole eliminator was placed. Highly cross- link polyethylene liner was placed. A Valentina Corail size 11 KLA femoral stem was impacted in position. +1.5/36 mm ceramic articular ball was placed. Hip was located once again found to be stable. Attention turned toward closing. The wound was irrigated with copious amounts of pulsatile lavage solution. I did inject locally with 60 cc of half percent Marcaine with epinephrine. The posterior capsule and external rotators were then repaired as a single layer of the posterior aspect of the trochanter with #2 Tycron suture B the IT band gluteal fascia then closed in 1 PDS suture in running fashion with subtenons tissue then closed with 2 layers with deep layer #1 Vicryl suture and subcutaneous tissues with 2 Dexon suture in a buried interrupted fashion the sk in was closed skin ambrosio. Leg was then cleaned dried a sterile dressing composed of Xeroform, 4 x 4's, ABD pads, and foam tape were applied. The patient then transferred to the recovery room in stable condition. Patient tolerated procedure well and no complications. I attest to the content of the Intraoperative Record and any orders documented therein. Any exceptions are noted below.
[2019-07-17] MEDS: FERROUS GLUCONATE 324 MG TAB PO SCH (17:21)
[2019-07-17] MEDS: ASCORBIC ACID 500 MG TAB PO SCH (17:21)
[2019-07-17] MEDS: CEFAZOLIN 1000MG 1,000 MG/7.5 ML SYR IV SCH (17:25)
[2019-07-17] MEDS: SENNA 8.6 MG TAB PO SCH (20:01)
[2019-07-17] MEDS: DOCUSATE SODIUM 100 MG CAP PO SCH (20:01)
[2019-07-17] MEDS: ASPIRIN 81 MG ECTAB PO SCH (20:01)
[2019-07-18] MEDS: CEFAZOLIN 1000MG 1,000 MG/7.5 ML SYR IV SCH (00:25)
[2019-07-18] MEDS ORDERED: DC INTRASPINAL MORPHINE ONE (02:47)
[2019-07-18] MEDS ORDERED: HYDROmorphone INJ 0.5 MG/0.5 ML SYR IV PRN (02:48)
[2019-07-18] MEDS ORDERED: ONDANSETRON INJ 2 MG/ML 2 ML VIAL IV PRN (02:48)
[2019-07-18] MEDS ORDERED: NALOXONE HCL 0.4 MG/1 ML VIAL/CARP IV PRN (02:48)
[2019-07-18] MEDS ORDERED: TRAMADOL HCL 50 MG TABLET PO PRN (02:48)
[2019-07-18] MEDS: ACETAMINOPHEN 500 MG TAB PO SCH ×3 (05:57→21:14)
[2019-07-18] MEDS: KETOROLAC TROMETHAMINE 15 MG/ML VIAL IV SCH ×3 (05:57→18:00)
[2019-07-18 06:44] LABS: Basophils # (auto) 0.03 K/uL (0-0.2); Basophils % (auto) 0.4 %; Eosinophils # (auto) 0.08 K/uL (0-0.5); Hematocrit (blood only) 34.2 % (42-52); Hemoglobin 10.9 g/dL (14.0-18.0); Immature Granulocytes # (auto) 0.01 K/uL (0.00-0.02); Immature Granulocytes % (auto) 0.1 %; Lymphocytes # (auto) 1.51 K/uL (1.2-3.4); Mean Corpuscular Hemoglobin 27.7 pg (25-34); Mean Corpuscular Hgb Conc 31.9 g/dL (32-36); Mean Corpuscular Volume 86.8 fL (80-100); Mean Platelet Volume 9.3 fL (7.4-10.4); Monocytes # (auto) 0.98 K/uL (0.11-0.59); Monocytes % (auto) 12.3 %; Neutrophils # (auto) 5.34 K/uL (1.4-6.5); Neutrophils % (auto) 67.2 %; Platelet Count 298 K/uL (130-400); RDW Coefficient of Variation 15.9 % (11.5-14.5); RDW Standard Deviation 51.5 fL (36.4-46.3); Red Blood Count 3.94 M/uL (4.7-6.1); White Blood Count 7.95 K/uL (4.8-10.8)
[2019-07-18 07:01] LABS: BUN Creatinine Ratio 8.7 (10-20); Calcium 8.5 mg/dl (8.5-10.1); Creatinine Clr Calc Pharmacy 65.4 ml/min; Est GFR (African American) 92.9; Est GFR (Non-African American) 80.1; Potassium 3.5 mmol/L (3.5-5.1)
--- NOTE | 2019-07-18 07:22 | Orthopedic Progress Note ---
Date of Service July 18, 2019 Assessment & Plan (1) Status post total hip replacement, left: He is doing well this morning. His pain is been well controlled. He was seen and examined by Dr. Miller today. Continue teds, SCDs, aspirin for DVT prophylaxis. Continue discharge planning. Hemoglobin is 10.9 this morning we will continue iron supplement. Subjective 74-year-old male postop day 1 from left total hip replacement. He is sitting in a chair at the bedside. Denies any pain at this time. Some pain if he moves his hip he said. No new complaints. Physical Exam Physical Exam: He is alert and oriented. No distress. Minimal swelling to his left leg. He is able to dorsiflex plantarflex appropriately. He is neurovascular intact. His vital signs are stable. Results & Data Vital Signs (Past 12 Hours) Vital Signs Temp Pulse Pulse Resp BP Pulse Ox 07/18/19 03:05 37 C 95 H 16 98/55 L 94 07/18/19 02:05 16 95 07/18/19 01:00 14 94 07/18/19 00:00 14 92 07/17/19 23:20 37.0 C 93 H 16 110/62 92 07/17/19 23:00 16 93 07/17/19 22:00 14 94 07/17/19 21:02 14 96 07/17/19 20:09 37.2 C 87 18 115/68 97 07/17/19 19:59 15 96 07/17/19 19:25 14 95 PG Care Time/CCT Total # of Minutes Spent Total Time Spent with Patient: Total time spent is greater than 50% in coordination of care (as documented) at patient's floor/unit and/or counseling patient:
[2019-07-18] MEDS: FERROUS GLUCONATE 324 MG TAB PO SCH ×2 (08:59→17:59)
[2019-07-18] MEDS: ASPIRIN 81 MG ECTAB PO SCH ×2 (08:59→21:13)
[2019-07-18] MEDS: ASCORBIC ACID 500 MG TAB PO SCH ×2 (08:59→17:59)
[2019-07-18] MEDS: MULTIVITAMIN TAB PO SCH (08:59)
[2019-07-18] MEDS: DOCUSATE SODIUM 100 MG CAP PO SCH ×2 (08:59→21:13)
[2019-07-18] MEDS: SENNA 8.6 MG TAB PO SCH (21:13)
[2019-07-19] MEDS: KETOROLAC TROMETHAMINE 15 MG/ML VIAL IV SCH ×3 (00:25→11:25)
[2019-07-19] MEDS: ACETAMINOPHEN 500 MG TAB PO SCH ×2 (05:17→13:38)
--- NOTE | 2019-07-19 08:23 | Progress Note ---
DATE: 07/19/2019 SUBJECTIVE: A 74-year-old gentleman postop day 2 from a left hip replacement. He is doing pretty well. Pain is controlled. Therapy has gone pretty well. No chest pain or shortness of breath. Not feeling dizzy or lightheaded. OBJECTIVE: VITAL SIGNS: Temperature 36.5. Vital signs stable. GENERAL: Shows a pleasant, middle-aged male. I had to wake him this morning. He is lying in bed, and looks pretty comfortable. EXTREMITIES: Examination of left hip and leg reveals the incision to be clean, dry and intact. Thigh is soft and supple. Leg lengths were equal. Hip is located. He is neurologically intact. ASSESSMENT: A 74-year-old gentleman postop day 2 from left hip replacement, doing pretty well. His pain is controlled. Hip is located. He is neurologically intact. PLAN: 1. DVT prophylaxis including thigh-high TEDs, SCDs, and aspirin twice a day. 2. PT/OT. Weight bear as tolerated. Left total hip protocol. 3. Pain control, doing well with current pain regimen. 4. Disposition: Plan to discharge to rehab, we are just waiting approval. He is hoping to go to [facility] in [place] similar to his last visit.
[2019-07-19] MEDS: MULTIVITAMIN TAB PO SCH (08:37)
[2019-07-19] MEDS: ASCORBIC ACID 500 MG TAB PO SCH (08:37)
[2019-07-19] MEDS: DOCUSATE SODIUM 100 MG CAP PO SCH (08:37)
[2019-07-19] MEDS: ASPIRIN 81 MG ECTAB PO SCH (08:37)
[2019-07-19] MEDS: FERROUS GLUCONATE 324 MG TAB PO SCH (08:37)
--- NOTE | 2019-07-22 22:52 | Discharge Summary ---
ADMITTING PHYSICIAN AND SURGEON: Dr. Enrico Miller. ADMITTING DIAGNOSIS: Left hip degenerative joint disease. SURGERY PERFORMED: Left total hip arthroplasty. SECONDARY DIAGNOSIS: Noncontributory. CONSULTS: None obtained. HISTORY AND PHYSICAL EXAMINATION: Well documented in the patient's chart. HOSPITAL COURSE: The patient was admitted on 07/17/2019, underwent total hip arthroplasty, tolerated the procedure well. There were no complications. He was transferred to the PACU postoperatively and later to the orthopedic floor for further care. He was given Ancef for antibiotic prophylaxis, YASMIN stockings, SCDs and aspirin for DVT prophylaxis. Hemoglobin, hematocrit and vital signs were monitored during his hospital stay and remained stable. He did have a hemoglobin down to 10.8 postoperatively. He was given an iron supplement, did not require any blood transfusions. There were no complications. By postoperative day 2, he was tolerating a regular diet, pain was controlled with oral pain medicine and he was participating in physical therapy. On postop day 2, he was transferred to a rehab facility. He was given printed discharge instructions as well as new prescriptions for extra strength Tylenol, aspirin and tramadol. Continue his home medicines. Continue physical therapies, weightbearing as tolerated, YASMIN stockings, total hip precautions. Follow up approximately 2 weeks postop or sooner if there are any problems or concerns.
== END 2019-07-19 16:25 | DRG 470 ==
LOC: ASU 05:24 → 3E 10:23